=== PATIENT | male | born 1995 | race Hispanic/Latino ===

== ENCOUNTER 2017-11-15 07:30 | Emergency (ER) | payer SELFPAY ==
--- NOTE | 2017-11-15 08:17 | RAD ---
3 VIEWS LEFT MIDDLE FINGER: Date: 11/15/17 COMPARISON: None. HISTORY: Finger laceration. FINDINGS: There is no radiopaque foreign body, fracture, or evidence of dislocation seen. There is soft tissue irregularity along the volar aspect of the finger at the level of the distal interphalangeal joint, c onsistent with a laceration. IMPRESSION: No acute fracture or dislocation. POS: RUKHSANA
[2017-11-15] MEDS ORDERED: HYDROcodone/Acetaminophen 10/325 mg Tablet ONE (08:19)
== END 2017-11-15 09:05 | disposition home or self-care (01) ==
LOC: ERS 07:30
DX: S61.213A Laceration without foreign body of left middle finger without damage to nail, initial encounter (principal); W26.8XXA Contact with other sharp object(s), not elsewhere classified, initial encounter; Y92.69 Other specified industrial and construction area as the place of occurrence of the external cause

== ENCOUNTER 2019-08-16 16:45 | Inpatient (IN) | payer SELFPAY ==
[~2019-08-16 16:45] MED LIST: Heparin 1,000 UNITS/ML VIAL ONE; Iopamidol-370 76% 500 ML 1 ML ONE
[2019-08-16] MEDS ORDERED: Ondansetron PF 4 MG/2 ML Vial ONE (17:10)
[2019-08-16] MEDS ORDERED: Morphine 4 MG/ML VIAL ONE (17:10)
[2019-08-16] MEDS ORDERED: Piperacillin/Tazobactam 3.375 GM VIAL ONE (17:10)
[2019-08-16 17:35] LABS: #Basophils 0.1 thou/uL (0.0-0.2); #Eosinphils 0.3 thou/uL (0.0-0.7); #Lymphocytes 2.7 thou/uL (1.20-3.40); #Monocytes 0.7 thou/uL (0.11-0.59); %Basophils 0.9 % (0.0-1.0); %Eosinophils 2.3 % (0.0-10.0); %Lymphocytes 23.1 % (21.0-51.0); %Monocytes 5.7 % (0.0-10.0); Hemoglobin 14.7 g/dL (14.0-18.0); Mean Corpuscular HGB CONC 33.1 g/dL (32.0-36.0); Mean Corpuscular Hemoglobin 29.3 pg (27.0-31.0); Mean Corpuscular Volume 88.5 fL (78.0-98.0); Mean Platelet Volume 7.1 fL (7.4-10.4); Platelet Count 312 thou/uL (130-400); RBC Distribution Width 12.6 % (11.5-14.5); Red Blood Cell (RBC) Count 5.04 mill/uL (4.70-6.10); White Blood Cell (WBC) Count 11.8 thou/uL (4.8-10.8)
[2019-08-16 17:59] LABS: ALT (SGPT) 26 U/L (8-55); AST (SGOT) 18 U/L (5-34); Albumin 4.5 g/dL (3.5-5.0); Alkaline Phosphatase 94 U/L (40-110); Anion Gap 11 mmol/L (10-20); BUN (Urea Nitrogen) 11 mg/dL (8.9-20.6); Bilirubin, Total 0.3 mg/dL (0.2-1.2); Calc. Creatinine Clearance 0 mL/min (70-130); Calcium 9.6 mg/dL (7.8-10.44); Carbon Dioxide 24 mmol/L (22-29); Chloride 105 mmol/L (98-107); Estimated GFR-MDRD Greater than 90; Globulin 3.1 g/dL (2.4-3.5); Glucose 92 mg/dL (70-105); Potassium 3.9 mmol/L (3.5-5.1); Protein, Total 7.6 g/dL (6.0-8.3); Sodium 136 mmol/L (136-145)
--- NOTE | 2019-08-16 18:52 | CT ---
CT OF THE SOFT TISSUES OF THE NECK WITH IV CONTRAST INDICATION: 23-year-old male with right lower dental abscess; dental pain for 2 to 3 days; head to th e pole 3 weeks ago; now with 2-3 days of purulent discharge COMPARISON: None FINDINGS: Aerodigestive tract: There is destructive osteolysis and periosteal reaction involving the medial ri ght posterior mandibular body subjacent to a right posterior mandibular molar extraction cavity. There is a peripherally enhancing fluid collection and extending along the medial osseous border of t he right distal mandibular body into the right submandibular region measuring 1.7 x 2.9 cm. There are enlarged lymph nodes seen within the right submandibular region and right upper neck. There is ce llulitis of the right upper neck skin and platysma. Parotids/Submandibular/Thyroid glands: Normal. Lymph nodes: There are enlarged lymph nodes within the right upper neck in the right submandibular r egion and along the right carotid jugular chain. Lung Apices: Clear. Bones: No acute osseous abnormality. Incidentals: There is a 2.8 x 1.9 cm cystic abnormality involving the subcutaneous tissues overlying the left mandible. This is inferior to Stensen's duct and superior to Gray's duct and is likely related to a skin cystic abnormality such as a sebaceous cyst. 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 Right facial and right neck cellulitis. Right neck lymphadenopathy. Suspected sebaceous cyst of the left face, overlying the left mandibular body.
[2019-08-16] MEDS ORDERED: Acetaminophen 325 MG TAB PO PRN (22:30)
[2019-08-16] MEDS ORDERED: Senokot S 8.6-50 MG TAB PO PRN (22:30)
[2019-08-16] MEDS: Sodium Chloride 0.9% 1,000 ML IV SCH (23:35)
--- NOTE | 2019-08-17 00:27 | PDOC.HHP ---
Hospitalist HPI - History of Present Illness Right jaw pain History of Present Illness: Mr Ho is a 23M who presented to the ED for evaluation of toothache x1 day, had tooth pulled in same spot 3 weeks ago and he noticed a knot appearing 3 days ago, pain started yesterday. Denies fever, chills. On CT scan in the ED: Right posterior mandibular osteomyelitis with periosseous abscess seen extending from the right posterior mandibular body into the right submandibular region. Right facial and right neck cellulitis. Right neck lymphadenopathy. OMFS was contacted, they will see in AM, IV ABX started. ED Course: See above Hospitalist ROS - Review of Systems Constitutional: denies: fever, chills, sweats, weakness, malaise, other Eyes: denies: pain, vision change, conjunctivae inflammation, eyelid inflammation, redness, other ENT: reports: mouth pain, mouth swelling Respiratory: denies: cough, dry, shortness of breath, hemoptysis, SOB with excertion, pleuritic pain, sputum, wheezing, other Cardiovascular: denies: chest pain, palpitations, orthopnea, paroxysmal noc. dyspnea, edema, light headedness, other Gastrointestinal: denies: nausea, vomiting, abdominal pain, diarrhea, constipation, melena, hematochezia, other Genitourinary: denies: dysuria, frequency, incontinence, hematuria, retention, other Musculoskeletal: denies: neck pain, shoulder pain, arm pain, back pain, hand pain, leg pain, foot pain, other Skin: denies: rash, lesions, adiel, bruising, other Neurological: denies: weakness, numbness, incoordination, change in speech, confusion, seizures, other - Medication Medications: Active Medications Generic Name Dose Route Start Last Admin Trade Name Freq PRN Reason Stop Dose Admin Sodium Chloride 1,000 mls @ 100 mls/hr 08/16/19 22:30 08/16/19 23:35 Normal Saline 0.9% IV 1,000 mls .Q10H GULSHAN Administration Hospitalist History - Past Medical History Source: patient Cardiac: reports: no pertinent history Pulmonary: reports: no pertinent history [employer]: reports: no pertinent history Gastrointestinal: reports: no pertinent history Heme/Onc: reports: no pertinent history Hepatobiliary: reports: no pertinent history Psych: reports: no pertinent history Musculoskeletal: reports: no pertinent history Rheumatologic: reports: no pertinent history Infectious Disease: reports: no pertinent history ENT: reports: Other (toothpain, jaw swelling) Renal/: reports: no pertinent history Endocrine: reports: no pertinent history Dermatology: reports: no pertinent history - Past Surgical History Past Surgical History: reports: no pertinent history - Family History Family History: reports: diabetes mellitus, hypertension - Social History Smoking Status: Never smoker Alcohol: reports: None Drugs: reports: marijuana Living Situation: With Family Activity level: independent ambulation - Exam Eye: PERRL ENT: moist mucosa ENT - other findings: right jaw with edema, tenderness Neck - other findings: lymphadenopathy-right Heart: RRR, normal peripheral pulses Respiratory: CTAB, normal chest expansion Gastrointestinal: soft, non-tender Extremities: no cyanosis, no edema Skin: normal turgor Neurological: cranial nerve grossly intact Musculoskeletal: normal tone Psychiatric: normal affect, A&O x 3 Hospitalist Results - Labs Result Diagrams: 08/16/19 17:27 08/16/19 17:27 Lab results: WBC 11.8 thou/uL (4.8-10.8) H 08/16/19 17:27 Hgb 14.7 g/dL (14.0-18.0) 08/16/19 17:27 Hct 44.6 % (42.0-52.0) 08/16/19 17:27 MCV 88.5 fL (78.0-98.0) 08/16/19 17:27 Plt Count 312 thou/uL (130-400) 08/16/19 17:27 Neutrophils % 68.0 % (42.0-75.0) 08/16/19 17:27 Sodium 136 mmol/L (136-145) 08/16/19 17:27 Potassium 3.9 mmol/L (3.5-5.1) 08/16/19 17:27 Chloride 105 mmol/L (98-107) 08/16/19 17:27 Carbon Dioxide 24 mmol/L (22-29) 08/16/19 17:27 BUN 11 mg/dL (8.9-20.6) 08/16/19 17:27 Creatinine 0.76 mg/dL (0.7-1.3) 08/16/19 17:27 Glucose 92 mg/dL (70-105) 08/16/19 17:27 Calcium 9.6 mg/dL (7.8-10.44) 08/16/19 17:27 Total Bilirubin 0.3 mg/dL (0.2-1.2) 08/16/19 17:27 AST 18 U/L (5-34) 08/16/19 17:27 ALT 26 U/L (8-55) 08/16/19 17:27 Alkaline Phosphatase 94 U/L (40-110) 08/16/19 17:27 Serum Total Protein 7.6 g/dL (6.0-8.3) 08/16/19 17:27 Albumin 4.5 g/dL (3.5-5.0) 08/16/19 17:27 Hospitalist H&P A/P - Problem (1) Osteomyelitis Code(s): M86.9 - OSTEOMYELITIS, UNSPECIFIED Status: Acute (2) Abscess Code(s): L02.91 - CUTANEOUS ABSCESS, UNSPECIFIED Status: Acute - Plan Plan: OMFS and ID consultation ordered Cefepime, flagyl, Vancomycin IVPB GI/DVT prevention IV fluids Repeat labs in AM NPO after midnight Case discussed with Dr. Paiz- agrees with plan
[2019-08-17 01:06] VITALS: BMI 22.4
[2019-08-17] MEDS: Vancomycin HCl 1 GM in Premix Bag 1 BAG IVPB SCH ×2 (03:57→12:03)
[2019-08-17] MEDS: metroNIDAZOLE 500 MG in Premix Bag 1 BAG IVPB SCH ×3 (05:38→21:32)
[2019-08-17 07:05] LABS: #Basophils 0.1 thou/uL (0.0-0.2); #Eosinphils 0.4 thou/uL (0.0-0.7); #Lymphocytes 2.1 thou/uL (1.20-3.40); #Monocytes 0.7 thou/uL (0.11-0.59); #Neutrophils 5.4 thou/uL (1.40-6.50); %Basophils 1.1 % (0.0-1.0); %Lymphocytes 23.8 % (21.0-51.0); %Monocytes 7.7 % (0.0-10.0); %Neutrophils 62.5 % (42.0-75.0); Hemoglobin 13.7 g/dL (14.0-18.0); Mean Corpuscular HGB CONC 32.2 g/dL (32.0-36.0); Mean Corpuscular Hemoglobin 28.7 pg (27.0-31.0); Mean Corpuscular Volume 89.1 fL (78.0-98.0); Mean Platelet Volume 6.9 fL (7.4-10.4); Platelet Count 284 thou/uL (130-400); RBC Distribution Width 12.7 % (11.5-14.5); Red Blood Cell (RBC) Count 4.78 mill/uL (4.70-6.10); White Blood Cell (WBC) Count 8.6 thou/uL (4.8-10.8)
[2019-08-17 07:27] LABS: Anion Gap 11 mmol/L (10-20); BUN (Urea Nitrogen) 12 mg/dL (8.9-20.6); Calc. Creatinine Clearance 145 mL/min (70-130); Calcium 8.9 mg/dL (7.8-10.44); Carbon Dioxide 25 mmol/L (22-29); Chloride 106 mmol/L (98-107); Estimated GFR-MDRD Greater than 90; Glucose 99 mg/dL (70-105); Potassium 4.3 mmol/L (3.5-5.1); Sodium 138 mmol/L (136-145)
[2019-08-17] MEDS: Famotidine 20 MG TAB PO SCH ×2 (07:56→19:56)
[2019-08-17] MEDS: HYDROcodone/Acetaminophen 7.5/325 mg Tablet PO PRN ×3 (08:10→23:59)
[2019-08-17] MEDS: Chlorhexidine Gluconate 15 ML UDCUP SSP SCH ×4 (08:11→19:58)
[2019-08-17] MEDS ORDERED: FLU VACC QS2019-20(6MOS UP)/PF 60 MCG/0.5 ML SYRINGE IM ONE (09:00)
[2019-08-17] MEDS ORDERED: Cefepime 1 GM in Sodium Chloride 0.9% 100 ML IVPB SCH (09:00)
[2019-08-17] MEDS ORDERED: Ondansetron PF 4 MG/2 ML Vial ONE (09:07)
[2019-08-17] MEDS ORDERED: Lidocaine 1% PF 5 ML VIAL ONE (09:07)
[2019-08-17] MEDS ORDERED: Ketorolac Tromethamine 30 MG/ML VIAL ONE (09:07)
[2019-08-17] MEDS ORDERED: PROPOFOL 200 MG/20 ML VIAL ONE (09:07)
[2019-08-17] MEDS ORDERED: Metoclopramide HCl 10 MG/2 ML VIAL ONE (09:07)
[2019-08-17] MEDS ORDERED: Dexamethasone 20 MG/5 ML VIAL ONE (09:07)
[2019-08-17] MEDS ORDERED: Rocuronium Bromide 10 MG/ML (10ML VIAL) ONE (09:07)
--- NOTE | 2019-08-17 11:53 | CON ---
DATE OF CONSULTATION: 08/17/2019 HISTORY OF PRESENT ILLNESS: This is a 23-year-old male, who had a tooth #31 removed approximately three weeks ago by his dentist. Prior to extraction of the tooth, it had been slowly decaying away for quite some time and had been causing the patient pain. Approximately three days ago, the patient reports feeling the appearance of a knot in the right mandibular region in the tooth 31 area and since that time, has had increasing pain and purulent discharge intraorally from the tooth 31 area. Of note, the patient has a longstanding history of a left-sided facial mass and swelling, for which he has been aware of being present for approximately 4 to 5 years. He denies any pain or symptoms and denies significant changes in size. PAST MEDICAL HISTORY: Negative. HOME MEDICATIONS: None. ALLERGIES: NO KNOWN DRUG ALLERGIES. PAST SURGICAL HISTORY: Left arm surgery. SOCIAL HISTORY: Positive for daily marijuana. Negative for tobacco smoking, alcohol, or other illicit drugs. REVIEW OF SYSTEMS: The patient reports moderate discomfort, soreness particularly to palpation of the right inferior border and lateral aspect of the mandible. No trismus. No dysphagia or odynophagia. No fevers or chills. Otherwise, review of systems negative. PHYSICAL EXAMINATION: VITAL SIGNS: Blood pressure 112/68, pulse 69, temperature 97.8, and 94% oxygen on room air. GENERAL: Alert and oriented x3. No apparent distress. HEAD AND NECK: The patient has a several centimeter soft mobile well-demarcated mass of the left cheek region, which is soft to palpation. The patient has [id number]-oi-[id number] edema in the right perimandibular region and towards the area of tooth 31. This swelling is mildly tender to touch with no obvious fluctuance and has almost been a hard bony feel that almost feels like a bony expansion in the region. The submandibular space is clear of any significant signs of induration, cellulitis, erythema, and overall submandibular tissues are relatively soft and normal other than medially adjacent to the mandible. On intraoral exam, the patient does have a purulence from the socket area of tooth 31 upon opening to his maximum amount and upon palpation of the right submandibular region. His maximum interincisal opening is normal. Floor of mouth is soft and the oropharynx is within normal limits. He has a significant decay and carious retained roots in the tooth #15 region, but there are no signs of soft tissue infection in that region. LABORATORY DATA: Yesterday had a white blood cell count of 11.8, his hemoglobin was 14.7, and his platelets were 312. His white blood cell count today is down to 8.6, hemoglobin is at 13.7, and platelets are 284. His metabolic panels have been within normal limits since admission. CT scan of the neck showed an approximately 3 x 2 cm cystic structure in the subcutaneous tissues overlying the left cheek and mandible region. On the right side, the patient has an osteolytic process involving the lingual aspect of the right posterior mandible in the areas of tooth 30 and 32 region. It appears that there is likely some bony sequestrum present and signs of periostitis and periosteal bone formation in the region both lingually and buccally. There is signs although minimal of some fluid collection along the lingual aspect of the right mandible, but no large submandibular abscess noted on the CT scan. ASSESSMENT: 1. A 23-year-old male three weeks status post removal of tooth 31 with signs of osteomyelitis of the right mandibular body and adjacent perimandibular and submandibular abscess. 2. Likely sebaceous cyst or others cystic abnormality associated with the epidermal or dermal structures in the left cheek, which is a longstanding. 3. Nonrestorable caries and signs of periapical infection, tooth #15. PLAN: 1. I recommend consultation of Dr. Morales with Infectious Disease for evaluation for a long-term IV antibiotics. 2. The patient should be kept n.p.o. and will be taken to the operating room later this day for incision and drainage of right perimandibular and submandibular abscess and debridement of right mandibular osteomyelitis in the OR under general anesthesia. 3. Continue IV antibiotics. 4. Peridex oral rinses b.i.d. The patient was consented for this procedure. Job ID: [id number]
[2019-08-17] MEDS: Sodium Chloride 0.9% 1,000 ML IV SCH ×3 (12:04→22:52)
[2019-08-17] MEDS ORDERED: Chlorhexidine Gluconate 15 ML UDCUP SSP ONE (13:30)
[2019-08-17] MEDS ORDERED: Lidocaine 1% w/Epinephrine 1:100K 20 ML VIAL ONE (13:30)
[2019-08-17] MEDS ORDERED: Hydrocortisone 1% Cream 30 GM TUBE ONE (13:30)
[2019-08-17] MEDS ORDERED: Famotidine/PF 20 mg/2ml Vial ONE (13:32)
[2019-08-17] MEDS ORDERED: Fentanyl 100 MCG/2 ML VIAL ONE (13:32)
[2019-08-17] MEDS ORDERED: metroNIDAZOLE 500 MG/100 ML BAG ONE (13:54)
--- NOTE | 2019-08-17 14:10 | PDOC.HOSPP ---
- Subjective Encounter Date: 08/17/19 Encounter Time: 10:20 Subjective: Pt seen for followup re: periapical abscess. feels better. - Objective Vital Signs & Weight: Vital Signs (12 hours) Temp Pulse Resp BP Pulse Ox 08/17/19 12:15 97.3 F L 64 18 111/71 97 08/17/19 08:00 94 L 08/17/19 07:55 97.8 F 69 18 112/68 94 L 08/17/19 03:49 97.7 F 84 16 97/62 97 Weight Weight 139 lb 3.2 oz I&O: 08/16/19 08/17/19 08/18/19 06:59 06:59 06:59 Intake Total 930 Balance 930 Result Diagrams: 08/17/19 06:49 08/17/19 06:49 Additional Labs: Labs and MARs reviewed by wa Hospitalist ROS - Review of Systems ENT: reports: mouth pain Cardiovascular: denies: chest pain, palpitations, orthopnea, paroxysmal noc. dyspnea, edema, light headedness Gastrointestinal: denies: nausea, vomiting, abdominal pain, diarrhea, constipation, melena, hematochezia - Medication Medications: Active Medications Generic Name Dose Route Start Last Admin Trade Name Freq PRN Reason Stop Dose Admin Hydrocodone Bitart/Acetaminophen 1 tab 08/16/19 22:30 08/17/19 08:10 [place] 7.5/325 PO 1 tab Q4H PRN Administration Moderate Pain (4-6) Chlorhexidine Gluconate 15 ml 08/17/19 09:00 08/17/19 12:04 Chlorhexidine Gluconate SSP 15 ml QID GULSHAN Administration Famotidine 20 mg 08/17/19 09:00 08/17/19 07:56 Pepcid PO 20 mg BID GULSHAN Administration Sodium Chloride 1,000 mls @ 100 mls/hr 08/16/19 22:30 08/17/19 12:04 Normal Saline 0.9% IV 1,000 mls .Q10H GULSHAN Administration Cefepime HCl 1 gm/ Sodium 100 mls @ 200 mls/hr 08/17/19 09:00 08/17/19 07:56 Chloride IVPB 100 mls Q12HR GULSHAN Administration Metronidazole 500 mg/ Device 100 mls @ 100 mls/hr 08/17/19 06:00 08/17/19 05: 38 IVPB 100 mls Q8HR GULSHAN Administration Vancomycin HCl 1 gm/ Device 200 mls @ 200 mls/hr 08/17/19 04:00 08/17/19 12: 03 IVPB 200 mls 0400,1200,2000 GULSHAN Administration - Exam General Appearance: NAD Eye: anicteric sclera ENT: moist mucosa ENT - other findings: right mandibular swelling Neck: supple Heart: RRR Respiratory: CTAB, no rales Gastrointestinal: soft, non-tender Extremities: no clubbing Musculoskeletal: no muscle wasting Psychiatric: normal affect, normal behavior Hosp A/P (1) Periapical abscess Code(s): K04.7 - PERIAPICAL ABSCESS WITHOUT SINUS Status: Acute (2) Osteomyelitis Code(s): M86.9 - OSTEOMYELITIS, UNSPECIFIED Status: Acute - Plan continue antibiotics Continue IV vancomycin, cefepime and metronidazole. ID and OFMS services consultes. Pt will likely need I&D of abscess.
[2019-08-17] MEDS ORDERED: Midazolam HCl 2 mg/2 ml Vial ONE (14:19)
[2019-08-17] MEDS ORDERED: Neomycin-Polymyxin 1 ML AMP ONE (14:34)
[2019-08-17] MEDS ORDERED: Ondansetron HCl/PF 4 MG/2 ML Vial IVP PRN (16:46)
[2019-08-17] MEDS ORDERED: PACU-Morphine 4MG/ML VIAL SLOW IVP PRN (16:46)
[2019-08-17] MEDS ORDERED: Meperidine HCl/PF 25 MG/ML VIAL SLOW IVP PRN (16:46)
[2019-08-17] MEDS ORDERED: Promethazine HCl 25 MG/ML VIAL IM PRN (16:46)
[2019-08-17] MEDS ORDERED: Promethazine HCl 25 MG/ML VIAL SLOW IVP PRN (16:46)
[2019-08-17] MEDS: cefTRIAXone\\ROCEPHIN 2 GM in Sodium Chloride 0.9% 100 ML IVPB SCH (17:53)
--- NOTE | 2019-08-17 18:50 | CT ---
EXAM: CT facial bones PROVIDED CLINICAL HISTORY: History of right mandibular debridement COMPARISON: CT the soft tissues of the neck dated August 16, 2019 FINDINGS: Bones: There is been interval osseous debridement involving the right posterior mandibular body with soft ti ssue gas seen within the right posterior mandibular molar excavation cavity as well as along the right masseter. Previously seen periosseous abscess is no longer identified. There is persistent cell ulitis of the right face and right upper neck. Enlarged lymph nodes of the upper neck are similar appearing. Cystlike abnormality overlying the left mandibular body is stable. There is been interval extraction of a left posterior maxillary molar. No overt additional drainable fluid collection is evident. Visualized intracranial contents appear within normal limits. Visualized orbits are within n ormal limits. Visualized paranasal sinuses are clear. Mastoid air cells are clear. No additional acute osseous abnormality is evident. IMPRESSION: Interval osseous and soft tissue debridement involving the region of right posterior mandibular body osteomyelitis and periosteal abscess. There is soft tissue gas seen within the debridement cavity of the medial right posterior mandibular body with soft tissue gas seen involving the right masticato r space and right masseter. No definite residual abscess is grossly evident. Persistent cellulitis of the right aspect of the face and neck. Enlarged lymph nodes of the upper neck persists. Persistent cystlike abnormality overlying the left mandible. Interval extraction of a left posterior maxillary molar.
--- NOTE | 2019-08-17 19:21 | CON ---
DATE OF CONSULTATION: 08/17/2019 REASON FOR CONSULT: Odontogenic infection with mandibular osteo. HISTORY OF PRESENT ILLNESS: A 23-year-old, who has no significant medical history and developed what he described as a cracked tooth in the left lower molar, which was removed two weeks before. No antimicrobials were administered following this event and subsequently, the patient developed persistent pain and swelling and he end up admitted. Dr. Hurtado is taking him to the OR for removal of a few teeth and debridement. Maybe some headaches. No visual symptoms. No sore throat. No swallowing difficulty or breathing difficulty. No chest pain. No cough or sputum production. No abdominal pain or diarrhea. No genitourinary symptoms. No joint symptoms. No neurological symptoms. PAST MEDICAL HISTORY: Negative otherwise. FAMILY HISTORY: Noncontributory. SOCIAL HISTORY: Does not smoke, never smoker. Drinks occasionally alcoholic beverages. He is from [place] and lives with his significant other in town. Works in construction. He has had a finger laceration in the past treated in the emergency room. ALLERGY HISTORY: Negative. CURRENT MEDICATIONS: 1. Cefepime. 2. Flagyl. 3. Vancomycin. PHYSICAL EXAMINATION: VITAL SIGNS: Temperature normal, blood pressure 111/71, pulse 64, respirations 18, and O2 saturation 97. SKIN: Shows the area of erythema in the left jaw with a swelling close to the left cheek region, which is soft to palpation, but with moderate tenderness. HEENT: Ocular movements conjugate. Oral cavity otherwise normal. NECK: Supple. No jugular venous distention. LUNGS: Symmetric clear breath sounds. HEART: S1 and S2, regular rate. No S3 or S4. ABDOMEN: Soft, not distended or tender. No ascites. No bladder distention. EXTREMITIES: No joint inflammatory activity. Moves extremities equally. Cognitive function appears to be intact. IMAGING: Soft tissue and neck CT with posterior mandibular osteomyelitis with periosteous abscess seen extending from the right posterior mandibular body to the right submandibular region. Right facial and right neck cellulitis, right neck lymphadenopathy. LABORATORY DATA: Includes normal chemistry results white cell count with mild elevation of white cell count of 11.8. Other findings without significance. ASSESSMENT: periodontal infection with extension into the soft tissues and in the mandibular bone with osteomyelitis. The patient going for teeth removal, bone debridement, and cultures. DISCUSSION: This type of process is quite common, consequence of poor dental care and extension of periodontal process into the mandibular bone. Most likely, the extension had already occurred by the time he had the dental extraction, although he might have developed acutely after the tooth removal. Organisms associated with oral process including the usual mouth microaerophilic silke including microaerophilic streptococci, Eikenella, Haemophilus, Kingella, and other organisms as well as strict anaerobes. We will switch him to Rocephin. Continue Flagyl. Discontinue vancomycin and cefepime. Arrange for outpatient treatment once the surgical intervention is completed. No evidence of neurovascular bundle or airway involvement at this point in time. Job ID: [id number]
[2019-08-17 19:37] LABS: Syphilis Antibody Nonreactive (Nonreactive); Syphilis Antibody Index 0.05 S/CO (<1.00 Non-Reactive)
[2019-08-17 19:38] LABS: HIV (1/2) Antibody/Antigen Non-Reactive (NonReactive); HIV 1/2 INDEX 0.07 S/CO (<1.00); Hep C IgG Ab Non-Reactive (NonReactive); Hep C Index 0.08 S/CO (0-0.79)
[2019-08-18] MEDS: HYDROcodone/Acetaminophen 7.5/325 mg Tablet PO PRN ×4 (04:02→18:49)
[2019-08-18] MEDS: metroNIDAZOLE 500 MG in Premix Bag 1 BAG IVPB SCH ×3 (05:58→20:59)
[2019-08-18] MEDS: Chlorhexidine Gluconate 15 ML UDCUP SSP SCH ×2 (08:57→20:57)
[2019-08-18] MEDS: Sodium Chloride 0.9% 1,000 ML IV SCH ×2 (08:57→22:37)
[2019-08-18] MEDS: Famotidine 20 MG TAB PO SCH ×2 (08:57→20:58)
[2019-08-18] MEDS: cefTRIAXone\\ROCEPHIN 2 GM in Sodium Chloride 0.9% 100 ML IVPB SCH (16:19)
--- NOTE | 2019-08-18 17:44 | PDOC.HOSPP ---
- Subjective Encounter Date: 08/18/19 Encounter Time: 10:40 Subjective: Ptseen for followup re: periapical abscess. States he feels better. - Objective Vital Signs & Weight: Vital Signs (12 hours) Temp Pulse Resp BP Pulse Ox 08/18/19 16:00 97.9 F 63 20 123/80 98 08/18/19 11:48 98.1 F 63 20 119/68 98 08/18/19 08:35 98 08/18/19 08:00 97.8 F 83 20 117/72 98 Weight Weight 139 lb 3.2 oz I&O: 08/17/19 08/18/19 08/19/19 06:59 06:59 06:59 Intake Total 930 1350 Balance 930 1350 Result Diagrams: 08/17/19 06:49 08/17/19 06:49 Additional Labs: Labs and MARs reviewed by [place] Hospitalist ROS - Review of Systems Constitutional: denies: fever, chills, sweats, weakness, malaise ENT: reports: other (pain over right side of mandible) Respiratory: denies: cough, shortness of breath, SOB with excertion, pleuritic pain, wheezing - Medication Medications: Active Medications Generic Name Dose Route Start Last Admin Trade Name Freq PRN Reason Stop Dose Admin Hydrocodone Bitart/Acetaminophen 1 tab 08/16/19 22:30 08/17/19 08:10 [place] 7.5/325 PO 1 tab Q4H PRN Administration Moderate Pain (4-6) Hydrocodone Bitart/Acetaminophen 2 tab 08/16/19 22:30 08/18/19 13:46 [place] 7.5/325 PO 2 tab Q4H PRN Administration Severe Pain (7-10) Chlorhexidine Gluconate 15 ml 08/17/19 21:00 08/18/19 08:57 Chlorhexidine Gluconate SSP 15 ml BID GULSHAN Administration Famotidine 20 mg 08/17/19 09:00 08/18/19 08:57 Pepcid PO 20 mg BID GULSHAN Administration Sodium Chloride 1,000 mls @ 100 mls/hr 08/16/19 22:30 08/18/19 08:57 Normal Saline 0.9% IV 1,000 mls .Q10H GULSHAN Administration Metronidazole 500 mg/ Device 100 mls @ 100 mls/hr 08/17/19 06:00 08/18/19 13: 47 IVPB 100 mls Q8HR GULSHAN Administration Ceftriaxone Sodium 2 gm/ 100 mls @ 200 mls/hr 08/17/19 16:00 08/18/19 16:19 Sodium Chloride IVPB 100 mls Q24HR GULSHAN Administration - Exam General Appearance: NAD Eye: anicteric sclera ENT: moist mucosa ENT - other findings: right mandibular swelling Heart: RRR Respiratory: CTAB, no rales Gastrointestinal: soft, non-tender Skin: no rashes Psychiatric: normal affect, normal behavior Hosp A/P (1) Periapical abscess Code(s): K04.7 - PERIAPICAL ABSCESS WITHOUT SINUS Status: Acute (2) Osteomyelitis Code(s): M86.9 - OSTEOMYELITIS, UNSPECIFIED Status: Acute - Plan continue antibiotics, out of bed/ambulate Continue ceftriaxone and metronidazole. s/p I&D periapical abscess. Await cultures.
[2019-08-18] MEDS: Dexamethasone 4 mg/ml Vial SLOW IVP SCH (22:36)
--- NOTE | 2019-08-19 03:22 | PRG ---
DATE OF SERVICE: 08/18/2019 SUBJECTIVE: The patient is postoperative day #1, status post incision and drainage of right perimandibular abscess and debridement of right mandible. The patient is doing well with pain controlled, tolerating p.o. diet, ambulating and voiding without difficulty. OBJECTIVE: VITAL SIGNS: Blood pressure is 131/65, temperature 98.3, pulse 76, oxygen saturation 100% on room air. GENERAL: He is alert and oriented x3. No apparent distress. HEAD AND NECK: Shows moderate edema in the right perimandibular region as expected based on the surgical intervention yesterday. Intraorally, there has been no signs of purulence or drainage and there is no fluctuance noted on exam. The surgical wounds appear to be healing within normal limits. His maximum interincisal opening is not normal, but not significantly restricted. Cultures showed gram-positive rods with a redose of moderate normal oral silke. Cultures are still preliminary. Postoperative CT scan of the face shows no signs of pathologic fracture and shows signs of debridement of significant amounts of bony sequestrum, necrotic bone. ASSESSMENT: Postoperative day #1, status post debridement of right mandible. The patient is progressing well and as expected at this stage. PLAN: 1. Dr. Morales left recommendations today and we will continue IV antibiotics per his recommendations. 2. Peridex oral rinses b.i.d. 3. Decadron 8 mg IV x3 doses. 4. Continue ambulation, p.o., and head of bed elevated. 5. The patient is okay for discharge home from my standpoint as soon as Dr. Morales is ready and as soon as IV antibiotic status post discharge is arranged and set up. I will see him while he remains in-house, but after discharge, he will follow up in my clinic on an outpatient basis for continued followup and care. Job ID: [id number]
[2019-08-19] MEDS: metroNIDAZOLE 500 MG in Premix Bag 1 BAG IVPB SCH ×3 (05:44→21:43)
[2019-08-19] MEDS: Dexamethasone 4 mg/ml Vial SLOW IVP SCH ×2 (05:44→14:07)
[2019-08-19] MEDS: HYDROcodone/Acetaminophen 7.5/325 mg Tablet PO PRN ×3 (05:51→19:52)
[2019-08-19] MEDS: Famotidine 20 MG TAB PO SCH ×2 (08:17→19:49)
[2019-08-19] MEDS: Chlorhexidine Gluconate 15 ML UDCUP SSP SCH ×2 (08:17→19:49)
[2019-08-19] MEDS: Sodium Chloride 0.9% 1,000 ML IV SCH ×2 (10:39→19:49)
[2019-08-19] MEDS ORDERED: Dexamethasone 4 mg/ml Vial ONE (14:05)
[2019-08-19] MEDS: cefTRIAXone\\ROCEPHIN 2 GM in Sodium Chloride 0.9% 100 ML IVPB SCH (16:46)
--- NOTE | 2019-08-19 18:38 | PDOC.HOSPP ---
- Subjective Encounter Date: 08/19/19 Encounter Time: 10:40 Subjective: Pt seen for followup re: periapical abscess. Feels well, no complaints. - Objective Vital Signs & Weight: Weight Weight 139 lb 3.2 oz I&O: 08/18/19 08/19/19 08/20/19 06:59 06:59 06:59 Intake Total 1350 3680 Balance 1350 3680 Result Diagrams: 08/17/19 06:49 08/17/19 06:49 Additional Labs: Labs and MARs reviewed by ca Hospitalist ROS - Review of Systems Constitutional: denies: fever, chills, sweats, weakness, malaise Cardiovascular: denies: chest pain, palpitations, orthopnea, paroxysmal noc. dyspnea, edema, light headedness - Medication Medications: Active Medications Generic Name Dose Route Start Last Admin Trade Name Freq PRN Reason Stop Dose Admin Hydrocodone Bitart/Acetaminophen 1 tab 08/16/19 22:30 08/19/19 14:07 [place] 7.5/325 PO 1 tab Q4H PRN Administration Moderate Pain (4-6) Hydrocodone Bitart/Acetaminophen 2 tab 08/16/19 22:30 08/19/19 05:51 [place] 7.5/325 PO 2 tab Q4H PRN Administration Severe Pain (7-10) Chlorhexidine Gluconate 15 ml 08/17/19 21:00 08/19/19 08:17 Chlorhexidine Gluconate SSP 15 ml BID GULSHAN Administration Famotidine 20 mg 08/17/19 09:00 08/19/19 08:17 Pepcid PO 20 mg BID GULSHAN Administration Sodium Chloride 1,000 mls @ 100 mls/hr 08/16/19 22:30 08/19/19 10:39 Normal Saline 0.9% IV 1,000 mls .Q10H GULSHAN Administration Metronidazole 500 mg/ Device 100 mls @ 100 mls/hr 08/17/19 06:00 08/19/19 14: 02 IVPB 100 mls Q8HR GULSHAN Administration Ceftriaxone Sodium 2 gm/ 100 mls @ 200 mls/hr 08/17/19 16:00 08/19/19 16:46 Sodium Chloride IVPB 100 mls Q24HR GULSHAN Administration - Exam General Appearance: NAD, awake alert Eye: anicteric sclera ENT: moist mucosa Neck: no thyromegaly Heart: RRR Respiratory: CTAB Gastrointestinal: soft, non-tender Neurological: no weakness Psychiatric: normal affect, normal behavior Hosp A/P (1) Periapical abscess Code(s): K04.7 - PERIAPICAL ABSCESS WITHOUT SINUS Status: Acute (2) Osteomyelitis Code(s): M86.9 - OSTEOMYELITIS, UNSPECIFIED Status: Acute - Plan continue antibiotics, out of bed/ambulate Continue ceftriaxone and metronidazole. s/p I&D periapical abscess, follow cultures. ID/OMFS following.
[2019-08-20] MEDS: metroNIDAZOLE 500 MG in Premix Bag 1 BAG IVPB SCH ×3 (05:15→21:54)
[2019-08-20] MEDS: Sodium Chloride 0.9% 1,000 ML IV SCH (05:15)
[2019-08-20] MEDS: Chlorhexidine Gluconate 15 ML UDCUP SSP SCH ×2 (08:24→20:19)
[2019-08-20] MEDS: HYDROcodone/Acetaminophen 7.5/325 mg Tablet PO PRN ×2 (08:24→14:31)
[2019-08-20] MEDS: Famotidine 20 MG TAB PO SCH ×2 (08:24→20:18)
--- NOTE | 2019-08-20 13:47 | SPC ---
Ultrasound and Fluoroscopic guided left upper extremity PICC placement HISTORY: Osteomyelitis of jaw. Patient needs long-term IV antibiotics FINDINGS: Informed consent obtained prior to the procedure. An appropriate access site was determined with ultrasound guidance. The area was then meticulously pr epped and draped in usual sterile fashion. Skin overlying the left basilic vein anesthetized with 1% buffered lidocaine. Utilizing direct sonogr aphic guidance, vascular access is obtained via the left basilic vein, and an 0.018in guidewire was advanced to the cavoatrial junction. Intravascular length is calculated at 40 cm, and the PICC is cut accordingly. Needle is removed and replaced with a peel-away sheath. The PICC was advanced over the wire. Wire and peel-away sheath were removed. The tip of the catheter overlies the cavoatrial junction. The catheter was accessed and aspirated/flushed easily. Exposure data: 0.1 minutes of fluoroscopic time 395 mGy centimeter squared FINDINGS: Technically successful placement of a 40 centimeter single lumen 5 [place] left upper extremity PICC l ine. IMPRESSION: Successful ultrasound guided placement of a left upper extremity PICC.
--- NOTE | 2019-08-20 14:08 | PRG ---
DATE OF SERVICE: 08/20/2019 SUBJECTIVE: The patient is doing well. He had a PICC line inserted. He has less pain in the jaw. No diarrhea. No respiratory symptoms or abdominal pain. OBJECTIVE: VITAL SIGNS: Normal. HEENT: Exam shows improvement in the swelling of the jaw. Ocular movements conjugate. LUNGS: Clear. HEART: S1 and S2. Regular rate. ABDOMEN: Soft. Not distended. LABORATORY DATA: White cell count down to 8.6. Creatinine 0.71. All the serologies are negative. Microbiology with pending cultures, probably microaerophilic silke and anaerobes. 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 The patient is supposed to be discharged on Rocephin and Flagyl. The end date of therapy will be September 29. Weekly labs include CBC, CRP, and CMP. The patient needs to visit a relative who has apparently in [place]. He could potentially be discharged on oral Augmentin and then return to [facility] and resume his treatment and should not be there more than 2 days probably. Job ID: [id number]
[2019-08-20] MEDS: cefTRIAXone\\ROCEPHIN 2 GM in Sodium Chloride 0.9% 100 ML IVPB SCH (15:27)
--- NOTE | 2019-08-20 18:50 | PDOC.HOSPP ---
- Subjective Encounter Date: 08/20/19 Encounter Time: 08:40 Subjective: Pt seen for followup re: periapical abscess. Feels better. No fevers. No pain. - Objective Vital Signs & Weight: Vital Signs (12 hours) Temp Pulse Resp BP Pulse Ox 08/20/19 08:27 100 08/20/19 08:16 98.1 F 68 18 118/64 100 Weight Weight 139 lb 3.2 oz I&O: 08/19/19 08/20/19 08/21/19 06:59 06:59 06:59 Intake Total 3680 1600 1200 Balance 3680 1600 1200 Result Diagrams: 08/17/19 06:49 08/17/19 06:49 Additional Labs: Labs and MARs reviewed by il Hospitalist ROS - Review of Systems Cardiovascular: denies: chest pain, palpitations, orthopnea, paroxysmal noc. dyspnea, edema, light headedness Gastrointestinal: denies: nausea, vomiting, abdominal pain, diarrhea, constipation, melena, hematochezia - Medication Medications: Active Medications Generic Name Dose Route Start Last Admin Trade Name Freq PRN Reason Stop Dose Admin Hydrocodone Bitart/Acetaminophen 1 tab 08/16/19 22:30 08/20/19 08:24 [place] 7.5/325 PO 1 tab Q4H PRN Administration Moderate Pain (4-6) Hydrocodone Bitart/Acetaminophen 2 tab 08/16/19 22:30 08/20/19 14:31 [place] 7.5/325 PO 2 tab Q4H PRN Administration Severe Pain (7-10) Chlorhexidine Gluconate 15 ml 08/17/19 21:00 08/20/19 08:24 Chlorhexidine Gluconate SSP 15 ml BID GULSHAN Administration Famotidine 20 mg 08/17/19 09:00 08/20/19 08:24 Pepcid PO 20 mg BID GULSHAN Administration Metronidazole 500 mg/ Device 100 mls @ 100 mls/hr 08/17/19 06:00 08/20/19 14: 20 IVPB 100 mls Q8HR GULSHAN Administration Ceftriaxone Sodium 2 gm/ 100 mls @ 200 mls/hr 08/17/19 16:00 08/20/19 15:27 Sodium Chloride IVPB 100 mls Q24HR GULSHAN Administration - Exam General Appearance: awake alert ENT: moist mucosa Neck: supple Heart: RRR Respiratory: CTAB Gastrointestinal: soft, non-tender Extremities: no clubbing Psychiatric: normal affect Hosp A/P (1) Periapical abscess Code(s): K04.7 - PERIAPICAL ABSCESS WITHOUT SINUS Status: Acute (2) Osteomyelitis Code(s): M86.9 - OSTEOMYELITIS, UNSPECIFIED Status: Acute - Plan continue antibiotics, out of bed/ambulate DC IV fluids. Arrangements being Continue ceftriaxone and metronidazole. s/p I&D periapical abscess, follow cultures. ID/OMFS following.
[2019-08-21] MEDS: metroNIDAZOLE 500 MG in Premix Bag 1 BAG IVPB SCH (05:35)
[2019-08-21] MEDS: Famotidine 20 MG TAB PO SCH (08:48)
[2019-08-21] MEDS: Chlorhexidine Gluconate 15 ML UDCUP SSP SCH (08:49)
--- NOTE | 2019-08-21 09:30 | CON ---
DATE OF CONSULTATION: 08/20/2019 SUBJECTIVE: Postoperative day #3, status post right mandibular debridement. The patient continues to improve with continued decreasing right facial swelling, improved pain control. The patient is tolerating p.o., ambulating without difficulty, and voiding without difficulty. OBJECTIVE: VITAL SIGNS: Blood pressure 118/64, pulse 68, temperature 98.1, and 100% oxygen on room air. GENERAL: Alert and oriented x3, in no apparent distress. HEAD AND NECK: Continued decreasing right perimandibular and facial swelling and edema with no fluctuance, erythema, or warmth. Intraorally, the patient shows continued signs of decreasing perimandibular edema and swelling as well. No fluctuance noted. Wounds are healing within normal limits and there is no drainage noted. Maximum interincisal opening continues to improve and is getting close to normal limits. LABORATORY DATA: Cultures continued to show normal oral silke and continued to be a preliminary status. ASSESSMENT: Postoperative day #3, status post debridement of right mandible. Continued improvement and signs of continued resolution of the acute infection. PLAN: 1. Continue IV antibiotics per Dr. Morales' recommendations. 2. Peridex oral rinses b.i.d. 3. Ambulation, p.o., head of bed elevated. The patient has been instructed that upon discharge he is to follow up in my office on 08/25/2019 for 1st outpatient followup visit. He has been instructed on oral hygiene care, the need for both the post discharge antibiotics, but also Peridex oral rinses morning and night. He has also been instructed on heat packs to the right perimandibular region and massage of the swollen region to help speed up resolution. The patient is okay for discharge and I will follow him on an outpatient basis from this point forward. Job ID: [id number]
--- NOTE | 2019-08-21 09:50 | PRG ---
DATE OF SERVICE: 08/19/2019 SUBJECTIVE: The patient is postoperative day #2, status post incision and drainage of right perimandibular abscess and debridement of right mandible. The patient is feeling significantly better today with pain control improved and swelling decreasing. The patient arranged to go home when able. OBJECTIVE: VITAL SIGNS: Blood pressure 138/75, pulse 75, temperature 98, oxygen saturation 100% on room air. GENERAL: Alert and oriented x3, in no apparent distress. HEAD AND NECK: Significant decrease in the right perimandibular swelling and edema. Intraorally, the wounds are healing within normal limits and there is no noted purulence or drainage. Intraorally, the postoperative edema and swelling are also decreasing in the floor of mouth region. There is no fluctuance noted throughout the extraoral or intraoral exam. His maximum interincisal opening is improving as well. LABORATORY DATA: Cultures are still preliminary, but showing normal oral silke. ASSESSMENT: Postoperative day #2, status post right mandibular debridement with improvement both subjectively and objectively. PLAN: 1. Continue following Dr. Morales' recommendations for antibiotic regimen. 2. Peridex oral rinses b.i.d. 3. Ambulation, p.o., and pain control. The patient continues to be okay and ready for discharge from surgical standpoint, and I will continue to follow along as the patient remains in the hospital. Job ID: [id number]
[2019-08-21 10:11] VITALS: BP 128/78; TEMP 97.9
--- NOTE | 2019-08-22 03:56 | DIS ---
DATE OF ADMISSION: 08/16/2019 DATE OF DISCHARGE: 08/21/2019 PRIMARY CARE PROVIDER: Unknown. DISCHARGE DIAGNOSES: 1. Periapical abscess. 2. Mandibular osteomyelitis. CONDITION OF PATIENT ON THE DAY OF DISCHARGE: Stable. I assessed Mr. Ho on the day of discharge. He denies any chest pain or shortness of breath. Vital signs are stable. S1 and S2 are heard, regular. Lungs are clear to auscultation bilaterally. DISCHARGE MEDICATIONS: 1. Peridex 15 mL swish and spit 2 times a day. 2. Flagyl 500 mg 3 times a day for 40 days. 3. Augmentin 875 mg 2 times a day, to be taken on the days that he will not get IV antibiotics. 4. Rocephin 2 g intravenously daily. CONSULTATIONS DURING THIS HOSPITALIZATION: marine steam fitter, Dr. Hurtado and Infectious Diseases, Dr. Morales. HOSPITAL COURSE: Mr. Ho is a pleasant 23-year-old gentleman who was admitted to [facility] on August 16, 2019 for periapical abscess and osteomyelitis of the mandible. He was seen by Infectious Diseases and OMFS services. He underwent incision and drainage of the abscess. At the time of this dictation, final culture report is not available. He has been advised to follow up with OMFS service for the same. He has been recommended ceftriaxone 2 g per day plus oral Flagyl 500 mg 3 times a day till September 29, weekly CBC, CRP, and CMP. Case Management is arranging for the same. He has to travel to [place] to visit a relative who is dying. Infectious Diseases service recommended that he should not be off IV antibiotics for more than 2 days and to take Augmentin on those 2 days. POST ACUTE CARE FOLLOWUP: Patient is advised to follow up with primary care provider in 3 days' time and with OMFS service in 1 weeks' time. DIET: Regular. ACTIVITY: Ad vahe. DISCHARGE DESTINATION: Home. TIME SPENT: Total amount of time spent coordinating this discharge: 18 minutes. Job ID: [id number]
--- NOTE | 2019-08-22 09:07 | PQF ---
Jose Ho Jr DAVID HERNANDEZ [id number] CLINICAL DOCUMENTATION CLARIFICATION FORM: POST DISCHARGE Addendum to original discharge summary date: ____ Late entry note date: __ DATE: 08/22/2019 ATTN: DAVID HERNANDEZ Please exercise your independent, professional judgment in responding to the clarification form. Clinical indicators are provided on the bottom of this form for your review Please check appropriate box(s) to clarify if the following diagnosis has been ruled in or ruled out: Right facial and neck cellulitis [ x ] Ruled in diagnosis [ x ] Continue to treat [ ] Resolved [ ] Ruled out diagnosis [ ] Cannot rule out diagnosis [ ] Other diagnosis [ ] Unable to determine For continuity of documentation, please document condition throughout progress notes and discharge summary. Thank You. CLINICAL INDICATORS - SIGNS / SYMPTOMS / LABS Right posterior mandibular osteomyelitis with periosseous abscess seen extending from the right posterior mandibular body into the right submandibular region. Right facial and neck cellulitis,Right neck lymphadenopathy-Documented in H&P on 08/17 by Priti Garza WBC-11.8-Documented in H&P on 08/17 by Priti Garza Periapical abscess-Documented in Hospitalist PN on 08/18 by David Hernandez [employer]ISK [employer]CTORS Mandibular osteomyelitis-Documented in H&P on 08/17 by Priti Garza TREATMENTS Cefepime, Flagyl, Vancomycin IVPB-Documented in H&P on 08/17 by Priti Garza [employer] Super[employer] Winform Viewer (This form is maintained as a part of the permanent medical record) 2014 [email or web address]. All Rights Reserved [email or web address] [not provided] [email or web address]
== END 2019-08-21 10:11 | disposition home or self-care (01) | DRG 158 ==
LOC: ERS 16:45 → T4-B 21:20
PROVIDERS: ADMIT Internal Medicine; ATTEND Internal Medicine
PROC: 02HV33Z Insertion of Infusion Device into Superior Vena Cava, Percutaneous Approach (ICD-10-PCS; principal; 2019-08-20)
DX: M27.2 Inflammatory conditions of jaws (principal); L03.221 Cellulitis of neck; L03.211 Cellulitis of face; L72.8 Other follicular cysts of the skin and subcutaneous tissue; K04.7 Periapical abscess without sinus
CPT/HCPCS: 36415; 36569; 70486; 70491; 80048; 80053; 85025; 86780; 86803; 87070; 87205; 87389; 96365; 96367; 96375; C1751; J0131; J0692; J0696; J1100; J1644; J1885; J2001; J2250; J2270; J2405; J2543; J2704; J2765; J3010; J3370; J3490; Q9967; S0028

== ENCOUNTER 2019-08-22 07:16 | Emergency (ER) | payer SELFPAY ==
[2019-08-22 08:51] LABS: #Basophils 0.1 thou/uL (0.0-0.2); #Eosinphils 0.1 thou/uL (0.0-0.7); #Lymphocytes 2.4 thou/uL (1.20-3.40); #Monocytes 0.5 thou/uL (0.11-0.59); #Neutrophils 5.9 thou/uL (1.40-6.50); %Basophils 1.2 % (0.0-1.0); %Eosinophils 0.9 % (0.0-10.0); %Lymphocytes 26.8 % (21.0-51.0); %Monocytes 5.8 % (0.0-10.0); %Neutrophils 65.4 % (42.0-75.0); Mean Corpuscular HGB CONC 33.8 g/dL (32.0-36.0); Mean Corpuscular Hemoglobin 29.5 pg (27.0-31.0); Mean Corpuscular Volume 87.3 fL (78.0-98.0); Mean Platelet Volume 7.2 fL (7.4-10.4); Platelet Count 344 thou/uL (130-400); RBC Distribution Width 12.2 % (11.5-14.5); Red Blood Cell (RBC) Count 4.76 mill/uL (4.70-6.10)
[2019-08-22 09:06] LABS: ALT (SGPT) 34 U/L (8-55); AST (SGOT) 26 U/L (5-34); Albumin 4.2 g/dL (3.5-5.0); Alkaline Phosphatase 82 U/L (40-110); Anion Gap 12 mmol/L (10-20); BUN (Urea Nitrogen) 9 mg/dL (8.9-20.6); Bilirubin, Total 0.5 mg/dL (0.2-1.2); Calc. Creatinine Clearance 0 mL/min (70-130); Calcium 9.6 mg/dL (7.8-10.44); Carbon Dioxide 25 mmol/L (22-29); Chloride 105 mmol/L (98-107); Estimated GFR-MDRD Greater than 90; Globulin 2.9 g/dL (2.4-3.5); Glucose 98 mg/dL (70-105); Potassium 3.4 mmol/L (3.5-5.1); Protein, Total 7.1 g/dL (6.0-8.3); Sodium 139 mmol/L (136-145)
== END 2019-08-22 10:20 | disposition home or self-care (01) ==
LOC: ERS 07:16
DX: F41.9 Anxiety disorder, unspecified (principal); R20.2 Paresthesia of skin
CPT/HCPCS: 36415; 80053; 85025; 99284